=== PATIENT | male | born 1985 | race Hispanic/Latino ===

== ENCOUNTER 2020-10-06 17:47 | Emergency (ER) | payer SELFPAY ==
[2020-10-06] MEDS ORDERED: Boostrix 0.5 ML (Tdap) VIAL ONE (18:28)
[2020-10-06] MEDS ORDERED: Bacitracin 1 PK ONE (18:28)
== END 2020-10-06 18:45 | disposition home or self-care (01) ==
LOC: BURERS 17:47
DX: S81.811A Laceration without foreign body, right lower leg, initial encounter (principal); S50.12XA Contusion of left forearm, initial encounter; X58.XXXA Exposure to other specified factors, initial encounter
CPT/HCPCS: 90471; 90715

== ENCOUNTER 2021-02-18 21:59 | Emergency (ER) | payer SELFPAY ==
[2021-02-18 22:22] LABS: Bilirubin Negative (Negative); Blood, Urine Negative (Negative); Clarity Clear (Clear); Glucose, Urine (Dipstick) Negative (Negative); Ketone, Urine Negative (Negative); Leukocyte Negative (Negative); Nitrite Negative (Negative); Protein, Urine (Dipstick) Negative (Neg-Trace); Specific Gravity, Urine 1.025 (1.005-1.030); Urobilinogen 0.2 mg/dL (Less than 2)
[2021-02-18] MEDS ORDERED: cefTRIAXone\\ROCEPHIN 1 GM VIAL ONE (22:32)
== END 2021-02-18 22:35 | disposition home or self-care (01) ==
LOC: BURERS 21:59
DX: Z20.2 Contact with and (suspected) exposure to infections with a predominantly sexual mode of transmission (principal)
CPT/HCPCS: 81003; 87491; 87591; 96372; 99283; J0696

== ENCOUNTER 2021-04-24 21:05 | Emergency (ER) | payer SELFPAY ==
[2021-04-24] MEDS ORDERED: Ondansetron ODT 4 MG TAB ONE (21:37)
[2021-04-25 22:05] LABS: SARS-CoV-2 PCR by NAA Not Detected (NotDetected)
== END 2021-04-24 22:00 | disposition home or self-care (01) ==
LOC: BURERS 21:05
DX: J06.9 Acute upper respiratory infection, unspecified (principal); R59.0 Localized enlarged lymph nodes; Z20.822 Contact with and (suspected) exposure to COVID-19
CPT/HCPCS: 87081; 87430; 99283; Q0162; U0003; U0005

== ENCOUNTER 2021-07-08 17:54 | Emergency (ER) | payer OTHER, SELFPAY ==
[2021-07-08 18:49] LABS: Bilirubin Negative (Negative); Blood, Urine Negative (Negative); Clarity Clear (Clear); Glucose, Urine (Dipstick) Negative (Negative); Ketone, Urine Negative (Negative); Leukocyte Negative (Negative); Nitrite Negative (Negative); Protein, Urine (Dipstick) Negative (Neg-Trace); Specific Gravity, Urine 1.025 (1.005-1.030)
[2021-07-08] MEDS ORDERED: cefTRIAXone\\ROCEPHIN 500 MG VIAL ONE (19:09)
[2021-07-09 21:31] LABS: Chlam.trachomatis by PCR,Urine Not Detected (NotDetected)
== END 2021-07-08 19:20 | disposition home or self-care (01) ==
LOC: BURERS 17:54
DX: N34.2 Other urethritis (principal)
CPT/HCPCS: 81003; 87491; 87591; 96372; 99283; J0696

== ENCOUNTER 2022-04-19 15:09 | Emergency (ER) | payer OTHER ==
[2022-04-19] MEDS ORDERED: Bupivacaine 0.5% 10 ML VIAL ONE (15:24)
[2022-04-19] MEDS ORDERED: Boostrix 0.5 ML (Tdap) VIAL (>/=7 yrs of age) ONE (15:25)
[2022-04-19] MEDS ORDERED: Bacitracin 1 PK ONE (15:58)
[2022-04-19] MEDS ORDERED: Cephalexin 250 MG CAP ONE (16:05)
== END 2022-04-19 16:12 | disposition home or self-care (01) ==
LOC: BURERS 15:09
DX: S61.215A Laceration without foreign body of left ring finger without damage to nail, initial encounter (principal); W27.8XXA Contact with other nonpowered hand tool, initial encounter; Y92.69 Other specified industrial and construction area as the place of occurrence of the external cause; Z23 Encounter for immunization
CPT/HCPCS: 12001; 90471; 90715; J3490

== ENCOUNTER 2023-03-06 19:04 | Emergency (ER) | payer BC ==
[2023-03-06] MEDS ORDERED: Morphine 4 MG/ML VIAL ONE (19:30)
[2023-03-06] MEDS ORDERED: Morphine 2 MG/ML VIAL ONE (19:30)
== END 2023-03-06 20:38 | disposition home or self-care (01) ==
LOC: BURERS 19:04
DX: S22.32XA Fracture of one rib, left side, initial encounter for closed fracture (principal); X50.9XXA Other and unspecified overexertion or strenuous movements or postures, initial encounter
CPT/HCPCS: 71250; 96372; J2270; J2272